=== PATIENT | female | born 1995 | race African-American/Black ===

== ENCOUNTER 2022-01-11 12:26 | Emergency (ER) | payer OTHER ==
[2022-01-11 12:40] VITALS: BP 114/80; PULSE 84; TEMP 97.8; BMI 18.9
[2022-01-11] MEDS ORDERED: SODIUM CHLORIDE 1,000 ML IV STA (14:11)
[2022-01-11] MEDS ORDERED: ACETAMINOPHEN 1000 MG/100 ML BAG IVPB ONE (14:11)
[2022-01-11] MEDS ORDERED: ACETAMINOPHEN INJECTION 100 ML IVPB ONE (14:30)
[2022-01-11 14:54] LABS: BASO % 0.4 % (0-2.0); EOS % 0.4 % (0-4.5); HEMATOCRIT 42.5 % (32.4-45.2); HEMOGLOBIN 13.7 GM/dL (10.7-15.3); LYMPH % 14.4 % (8-40); MCH 28.8 pg (25.7-33.7); MCHC 32.3 g/dl (32.0-36.0); MEAN CELL VOLUME 89.2 fl (80-96); MEAN PLT VOLUME 8.8 fl (7.5-11.1); MONO % 4.9 % (3.8-10.2); NEUT % 79.9 % (42.8-82.8); PLATELET COUNT 333 10^3/uL (134-434); RBC 4.77 M/mm3 (3.60-5.2); RDW 13.3 % (11.6-15.6); WHITE BLOOD COUNT 12.4 K/mm3 (4.0-10.0)
[2022-01-11 15:12] LABS: BLOOD UREA NITROGEN 10.2 mg/dL (7-18); CALCIUM 9.2 mg/dL (8.5-10.1)
[2022-01-11 15:13] LABS: ALBUMIN 4.1 g/dl (3.4-5.0)
[2022-01-11 15:15] LABS: CREATININE 0.9 mg/dL (0.55-1.3)
[2022-01-11 15:17] LABS: BILIRUBIN,TOTAL 0.4 mg/dL (0.2-1); TOT PROT 7.6 g/dl (6.4-8.2)
== END 2022-01-11 20:12 | disposition home or self-care (01) ==
LOC: JER 12:26
PROC: 3E0333Z Introduction of Anti-inflammatory into Peripheral Vein, Percutaneous Approach (ICD-10-PCS; principal; 2022-01-11)
PROC: 3E0337Z Introduction of Electrolytic and Water Balance Substance into Peripheral Vein, Percutaneous Approach (ICD-10-PCS; 2022-01-11)
DX: S01.81XA Laceration without foreign body of other part of head, initial encounter (principal); S51.852A Open bite of left forearm, initial encounter; S22.31XA Fracture of one rib, right side, initial encounter for closed fracture; S02.2XXA Fracture of nasal bones, initial encounter for closed fracture; S41.052A Open bite of left shoulder, initial encounter; Y04.1XXA Assault by human bite, initial encounter; X99.9XXA Assault by unspecified sharp object, initial encounter
CPT/HCPCS: 36415; 70450-TC; 70486-TC; 71260-TC; 72125-TC; 74177-TC; 80053; 84703; 85025; 86850; 86900; 86901; 99285-25; Q9967